=== PATIENT | female | born 1975 | race Caucasian/White ===

== ENCOUNTER 2021-05-28 05:22 | Day surgery (SDC) | payer BC ==
[2021-05-27 08:39] VITALS: BMI 27.8
[~2021-05-28 05:22] MED LIST: BUPIVACAINE HCL/PF 0.5% (5MG/ML) 10 ML VIAL IJ ONE; IOHEXOL 180 MG/1 ML ML IJ ONE; LIDOCAINE HCL 1% PRESERVATIVE FREE - 30ML VIAL IJ ONE
[2021-05-28] MEDS ORDERED: BUPIVACAINE HCL/PF 0.25% (2.5MG/ML) 10 ML VIAL ONE (07:36)
[2021-05-28] MEDS ORDERED: LIDOCAINE HCL/PF 1% SDV 5ML VIAL ONE (07:36)
[2021-05-28] MEDS ORDERED: DEXAMETHASONE SOD PHOSPHATE 10 MG/1 ML VIAL ONE (07:36)
[2021-05-28] MEDS ORDERED: BUPIVACAINE HCL 50 ML ONE (07:37)
[2021-05-28] MEDS ORDERED: BUPIVACAINE HCL/PF 0.75% 10 ML VIAL ONE (07:37)
[2021-05-28] MEDS ORDERED: SODIUM CHLORIDE 0.9% P/F 10 ML VIAL IJ ONE (07:42)
[2021-05-28 09:19] VITALS: TEMP 98
[2021-05-28 09:59] VITALS: BP 100/70; PULSE 70
== END 2021-05-28 09:50 | disposition home or self-care (01) ==
LOC: JASU-SURG 05:22
PROVIDERS: ATTEND Pain Medicine Pain Medicine
PROC: 3E0T33Z Introduction of Anti-inflammatory into Peripheral Nerves and Plexi, Percutaneous Approach (ICD-10-PCS; 2021-05-28)
PROC: 3E0T3BZ Introduction of Anesthetic Agent into Peripheral Nerves and Plexi, Percutaneous Approach (ICD-10-PCS; principal; 2021-05-28 08:30)
DX: M47.812 Spondylosis without myelopathy or radiculopathy, cervical region (principal)
CPT/HCPCS: 76000-TC-FY; 81025; J1100

== ENCOUNTER 2021-06-27 04:28 | Day surgery (SDC) | payer BC ==
[2021-06-25 16:43] VITALS: BMI 25.4
[2021-06-27] MEDS ORDERED: LIDOCAINE HCL/PF 1% SDV 5ML VIAL ONE (07:26)
[2021-06-27] MEDS ORDERED: BUPIVACAINE HCL/PF 0.5% (5MG/ML) 10 ML VIAL ONE (07:26)
[2021-06-27] MEDS ORDERED: IOHEXOL 180 MG/1 ML ML IJ ONE ×3 (10:55)
[2021-06-27] MEDS ORDERED: BUPIVACAINE HCL/PF 0.5% (5MG/ML) 10 ML VIAL IJ ONE ×2 (10:55)
[2021-06-27 12:04] VITALS: BP 107/47; PULSE 73; TEMP 97.5
== END 2021-06-27 11:25 | disposition home or self-care (01) ==
LOC: JASU-SURG 04:28
PROVIDERS: ATTEND Pain Medicine Pain Medicine
PROC: 3E0T33Z Introduction of Anti-inflammatory into Peripheral Nerves and Plexi, Percutaneous Approach (ICD-10-PCS; 2021-06-27)
PROC: 3E0T3BZ Introduction of Anesthetic Agent into Peripheral Nerves and Plexi, Percutaneous Approach (ICD-10-PCS; principal; 2021-06-27 09:15)
DX: M47.812 Spondylosis without myelopathy or radiculopathy, cervical region (principal)
CPT/HCPCS: 76000-TC-FY; 81025

== ENCOUNTER 2021-07-25 04:13 | Day surgery (SDC) | payer BC ==
[2021-07-23 13:47] VITALS: BMI 29.1
[2021-07-25] MEDS ORDERED: LIDOCAINE HCL/PF 1% SDV 5ML VIAL ONE (07:28)
[2021-07-25] MEDS ORDERED: BUPIVACAINE HCL/PF 0.5% (5MG/ML) 10 ML VIAL ONE (07:29)
[2021-07-25] MEDS ORDERED: LIDOCAINE HCL/PF 2% SDV 5ML VIAL ONE (13:16)
[2021-07-25] MEDS ORDERED: BUPIVACAINE HCL/PF 0.75% 10 ML VIAL ONE (13:21)
[2021-07-25] MEDS ORDERED: LIDOCAINE HCL 1%, 10 MG/ML (20ML VIAL) SNB ONE (13:38)
[2021-07-25] MEDS ORDERED: BUPIVACAINE HCL/PF 0.5% (5MG/ML) 10 ML VIAL IJ ONE (13:38)
[2021-07-25] MEDS ORDERED: LIDOCAINE HCL 2% (50ML VIAL) NR ONE (13:38)
[2021-07-25] MEDS ORDERED: DEXAMETHASONE SOD PHOSPHATE 10 MG/1 ML VIAL IM ONE (13:38)
[2021-07-25 14:12] VITALS: BP 109/60; PULSE 60; TEMP 97.8
== END 2021-07-25 14:30 | disposition home or self-care (01) ==
LOC: JASU-SURG 04:13
PROVIDERS: ATTEND Pain Medicine Pain Medicine
PROC: 3E0T3TZ Introduction of Destructive Agent into Peripheral Nerves and Plexi, Percutaneous Approach (ICD-10-PCS; principal; 2021-07-25 11:45)
PROC: BR14YZZ Fluoroscopy of Cervical Facet Joint(s) using Other Contrast (ICD-10-PCS; 2021-07-25 11:45)
DX: M47.812 Spondylosis without myelopathy or radiculopathy, cervical region (principal)
CPT/HCPCS: 76000-TC-FY; 81025; J1100

== ENCOUNTER → 2021-07-28 | Day surgery (SDC) | payer BC | END | disposition home or self-care (01) | LOC: JRADIR 09:37 | PROVIDERS: ATTEND Internal Medicine Endocrinology, Diabetes & Metabolism | PROC: 0G9H3ZX Drainage of Right Thyroid Gland Lobe, Percutaneous Approach, Diagnostic (ICD-10-PCS; principal; 2021-07-28) | DX: E04.1 Nontoxic single thyroid nodule (principal) | CPT/HCPCS: 10005; 76942 ==

== ENCOUNTER 2021-08-19 04:33 | Day surgery (SDC) | payer BC ==
[2021-08-18 12:25] VITALS: BMI 29.1
[2021-08-19] MEDS ORDERED: LIDOCAINE HCL/PF 1% SDV 5ML VIAL ONE (07:14)
[2021-08-19] MEDS ORDERED: DEXAMETHASONE SOD PHOSPHATE 10 MG/1 ML VIAL ONE (07:14)
[2021-08-19] MEDS ORDERED: SODIUM CHLORIDE 0.9% P/F 10 ML VIAL IJ ONE (07:18)
[2021-08-19] MEDS ORDERED: LIDOCAINE HCL/PF 2% SDV 5ML VIAL PNB ONE (08:49)
[2021-08-19] MEDS ORDERED: DEXAMETHASONE SOD PHOSPHATE 10 MG/1 ML VIAL IVPUSH ONE (08:49)
[2021-08-19] MEDS ORDERED: BUPIVACAINE HCL/PF 0.5% (5MG/ML) 10 ML VIAL PNB ONE ×2 (08:49)
[2021-08-19] MEDS ORDERED: LIDOCAINE HCL 1% PRESERVATIVE FREE - 30ML VIAL PNB ONE ×2 (08:49)
[2021-08-19 10:46] VITALS: BP 125/71; PULSE 68; TEMP 97.8
== END 2021-08-19 10:00 | disposition home or self-care (01) ==
LOC: JASU-SURG 04:33
PROVIDERS: ATTEND Pain Medicine Pain Medicine
PROC: 3E0T3TZ Introduction of Destructive Agent into Peripheral Nerves and Plexi, Percutaneous Approach (ICD-10-PCS; principal; 2021-08-19 08:15)
PROC: BR14YZZ Fluoroscopy of Cervical Facet Joint(s) using Other Contrast (ICD-10-PCS; 2021-08-19 08:15)
DX: M47.812 Spondylosis without myelopathy or radiculopathy, cervical region (principal)
CPT/HCPCS: 76000-TC-FY; 81025; J1100

== ENCOUNTER → 2021-09-22 | Day surgery (SDC) | payer BC | END | disposition home or self-care (01) | LOC: JRADIR 09:39 | PROVIDERS: ATTEND Internal Medicine Endocrinology, Diabetes & Metabolism | PROC: 0G9G3ZX Drainage of Left Thyroid Gland Lobe, Percutaneous Approach, Diagnostic (ICD-10-PCS; principal; 2021-09-22) | DX: E04.1 Nontoxic single thyroid nodule (principal) | CPT/HCPCS: 10005; 76942; 88173; 88305-TC ==

== ENCOUNTER 2023-02-09 04:30 | Day surgery (SDC) | payer BC ==
[2023-02-05 15:07] VITALS: BMI 29.1
[~2023-02-09 04:30] MED LIST changes: -BUPIVACAINE HCL/PF 0.5% (5MG/ML) 10 ML VIAL IJ ONE; +BUPIVACAINE HCL/PF 0.5% (5MG/ML) 10 ML VIAL PNB ONE; +DEXAMETHASONE SOD PHOSPHATE 10 MG/1 ML VIAL IVPUSH ONE; -IOHEXOL 180 MG/1 ML ML IJ ONE; +LIDOCAINE 1% P/F 10 MG/ML VIAL PNB ONE; -LIDOCAINE HCL 1% PRESERVATIVE FREE - 30ML VIAL IJ ONE; +LIDOCAINE HCL/PF 2% SDV 5ML VIAL PNB ONE
[2023-02-09] MEDS ORDERED: LIDOCAINE HCL/PF 1% SDV 5ML VIAL ONE (07:32)
[2023-02-09] MEDS ORDERED: DEXAMETHASONE SOD PHOSPHATE 10 MG/1 ML VIAL ONE (07:32)
[2023-02-09] MEDS ORDERED: BUPIVACAINE HCL/PF 0.5% (5MG/ML) 10 ML VIAL ONE (07:32)
[2023-02-09] MEDS ORDERED: LIDOCAINE HCL/PF 2% SDV 5ML VIAL ONE (07:39)
[2023-02-09 11:23] VITALS: RESP 18
[2023-02-09] MEDS ORDERED: BUPIVACAINE HCL/PF 0.5% (5MG/ML) 10 ML VIAL PNB ONE (14:17)
[2023-02-09] MEDS ORDERED: LIDOCAINE 1% P/F 10 MG/ML VIAL PNB ONE (14:17)
[2023-02-09] MEDS ORDERED: DEXAMETHASONE SOD PHOSPHATE 10 MG/1 ML VIAL IVPUSH ONE (14:17)
[2023-02-09] MEDS ORDERED: LIDOCAINE HCL/PF 2% SDV 5ML VIAL PNB ONE (14:17)
[2023-02-09 15:36] VITALS: BP 100/50
[2023-02-09 15:39] VITALS: PULSE 74; TEMP 97
== END 2023-02-09 15:39 | disposition home or self-care (01) ==
LOC: JASU-SURG 04:30
PROVIDERS: ATTEND Pain Medicine Pain Medicine
PROC: 01513ZZ Destruction of Cervical Nerve, Percutaneous Approach (ICD-10-PCS; principal; 2023-02-09 12:30)
DX: M47.812 Spondylosis without myelopathy or radiculopathy, cervical region (principal)
CPT/HCPCS: 76000-TC-FY; 81025; J1100

== ENCOUNTER 2024-03-06 09:01 | Emergency (ER) | payer BC, OTHER ==
[2024-03-06 09:54] VITALS: BP 133/84; PULSE 80; RESP 16; TEMP 98.1; BMI 29.9
[2024-03-06] MEDS ORDERED: IBUPROFEN 600 MG TABLET (FP) PO ONE (10:22)
[2024-03-06] MEDS: IBUPROFEN 600 MG TABLET (FP) PO ONE (10:25)
== END 2024-03-06 13:02 | disposition home or self-care (01) ==
LOC: JER 09:01
PROC: 2W3FX1Z Immobilization of Left Hand using Splint (ICD-10-PCS; principal; 2024-03-06)
DX: M79.642 Pain in left hand (principal); W01.0XXA Fall on same level from slipping, tripping and stumbling without subsequent striking against object, initial encounter
CPT/HCPCS: 73110-TC-LT-FY; 73130-TC-LT-FY; 99283-25